=== PATIENT | female | born 1960 | race Caucasian/White ===

== ENCOUNTER 2016-08-18 19:51 | Emergency (ER) | payer BC ==
[~2016-08-18] VITALS: Ht 157.5 cm; Wt 84.0 kg
[~2016-08-18 19:51] MED LIST: ASPI-664 PO; CARV3.12 PO; LOSA25TA2 PO
[2016-08-18 19:55] VITALS: Ht 157.5 cm; Wt 84.0 kg
[2016-08-18] MEDS ORDERED: KETOROLAC 30 MG INJ IM STA (20:15)
--- NOTE | 2016-08-18 21:29 | RADRPT ---
PROCEDURE: XR Lumbar Spine. CLINICAL INDICATION: Pain. TECHNIQUE: AP, lateral and cone-down lateral view of the lumbar spine were obtained. COMPARISON: No prior studies are available for comparison. FINDINGS: Para 5 lumbar vertebra. There is moderate disk space narrowing at L4-5 and moderately severe disk s pace narrowing at L5-S1. There is no evidence of spondylolysis or spondylolisthesis. There is a mi ld 212 wedge compression fracture which appears chronic with ventral osteophytes off of 04/04. Ther e is disk space narrowing at T11-12. There is endplate softening at T12-L1, L1-2 and L2-3. There a re vascular calcifications in the abdominal aorta. There are ventral osteophytes at L3-4, L4-5 and L5-S1. IMPRESSION: 1. 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 2. Osteoarthritis of the lumbar spine with vacuum disk phenomenon and disk space narrowing at L4-5 and L5-S1. 3. Atherosclerotic vascular disease. RPTAT:AAJJ Physician Bhupinder Date Time Electronically viewed and signed by Physician Bhupinder on 08/18/2016 21:29 /
[2016-08-18] MEDS ORDERED: TRAM50TA2 PO (21:44)
--- NOTE | 2016-08-18 22:00 | ERD ---
ER Documentation Chief Complaint Date/Time DATE: 08/18/16 TIME: 21:56 Chief Complaint low back pain HPI 56-year-old female complains of left-sided lower back pain that radiates down her left knee for the past 3 months and has an exacerbation since this morning. She states that it was after she got out of the shower, she denies any fall. Please disregard the triage nurses note, she did not have any fall. She reports that she has had achy pain on and off for 3 months and has not received a prescription for Naprosyn by her primary care doctor. She takes it when she has pain, she took one this morning that seemed to help. Pain radiates down her left lower back down to her left knee, worse with any movement describes as achy and diffuse. She has not had any saddle anesthesia loss of bowel bladder function. Denies trauma. ROS All systems reviewed and are negative except as per history of present illness. Medications Home Meds Active Scripts Tramadol HCl (Tramadol HCl) 50 Mg Tablet, 50 MG PO Q4 Y for PAIN, #20 TAB Prov:NAVID PEGUERO PA-C 08/18/16 Losartan Potassium* (Cozaar*) 25 Mg Tab, 25 MG PO DAILY for 30 Days Prov:JORGE LOPEZ 10/27/14 Carvedilol* (Coreg*) 3.125 Mg Tab, 3.125 MG PO BID for 30 Days Prov:JORGE LOPEZ 10/27/14 Aspirin* (Aspirin* EC) 81 Mg Tabec, 81 MG PO DAILY for 30 Days Prov:JORGE LOPEZ 10/27/14 Allergies Allergies: Coded Allergies: No Known Drug Allergies (Verified Allergy, Unknown, 10/25/14) PMhx/Soc History of Surgery: Yes (OVARY CYST SURGERY) Anesthesia Reaction: No Hx Neurological Disorder: No Hx Respiratory Disorders: No Hx Cardiac Disorders: Yes (HYPERTENSION) Hx Psychiatric Problems: No Hx Miscellaneous Medical Probl: No Hx Alcohol Use: No Hx Substance Use: No Hx Tobacco Use: No Smoking Status: Never smoker Physical Exam Vitals Vital Signs Date Time Temp Pulse Resp B/P Pulse Ox O2 Delivery O2 Flow Rate FiO2 08/18/16 19:55 98.2 65 18 189/89 96 Physical Exam General: Well-developed, well-nourished. The patient appears in no acute distress. HEENT: Head is normocephalic, atraumatic. No scleral icterus. Neck: Supple. Nontender. Lungs: Clear to auscultation. Normal air movement. Heart: Regular rate and rhythm. S1 and S2 are normal. No murmurs, gallops, or rubs. Abdomen: Soft, nontender, nondistended. Bowel sounds are normoactive. Back sacroiliac pain upon palpation left side, paraspinous tenderness left lateral, strength lower extremities 5 out of 5 bilaterally. Extremities: No clubbing or cyanosis. Normal pulses. Moving extremities x 4. No weakness. Neurologic: Alert and oriented 3. No focal deficits. Skin: Normal turgor. No rash or lesions. Results 24 hrs Current Medications Medications (Trade) Dose Ordered Sig/Lauren Route PRN Reason Start Time Stop Time Status Last Admin Dose Admin Ketorolac Tromethamine (Toradol) 30 mg ONCE STAT IM 08/18/16 20:15 08/18/16 20:40 DC 08/18/16 20:55 DIAGNOSTIC IMAGING REPORT Patient: SURESH HANSEN : 1960 Age: 56 Sex: F MR #: [id number] DOS: 08/18/162014 Ordering MD: NAVID PEGUERO PA-C Location: [facility] Room/Bed: PROCEDURE: XR Lumbar Spine. CLINICAL INDICATION: Pain. TECHNIQUE: AP, lateral and cone-down lateral view of the lumbar spine were obtained. COMPARISON: No prior studies are available for comparison. FINDINGS: Para 5 lumbar vertebra. There is moderate disk space narrowing at L4-5 and moderately severe disk space narrowing at L5-S1. There is no evidence of spondylolysis or spondylolisthesis. There is a mild 212 wedge compression fracture which appears chronic with ventral osteophytes off of 04/04. There is disk space narrowing at T11-12. There is endplate softening at T12-L1, L1-2 and L2-3. There are vascular calcifications in the abdominal aorta. There are ventral osteophytes at L3-4, L4-5 and L5-S1. IMPRESSION: 1. 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 2. Osteoarthritis of the lumbar spine with vacuum disk phenomenon and disk space narrowing at L4-5 and L5-S1. 3. Atherosclerotic vascular disease. RPTAT:AAJJ Mark Arguello Physician Date Time Electronically viewed and signed by Mark Arguello Physician on 08/18/2016 21:29 JM/ CC: NAVID PEGUERO PA-C Procedures/MDM 56-year-old female complains of low back pain, intermittent for 3 months, she has had acute chronic back pain, and has been on and off. She her examination is benign, no signs of cauda equina compression. X-rays show old compression fracture at T12, this is not where her pain is, she denies any trauma. She does have multiple areas of arthritis and degenerative disc disease at it is a chronic process. She was given copies of her x-ray and cannot follow-up with her primary care doctor for further management pain control. Departure Diagnosis: Primary Impression: Arthritis Condition: Good Patient Instructions: What Is Arthritis?, Causes of Lumbar (Low Back) Pain Additional Instructions: Llame al doctor MAANA y eky ángela BING PARA DENTRO DE 1-2 [place].Dgale a la secretaria que nosotros le instruimos hacer esta bing.Avise o llame si berrios condicin se empeora antes de la bing. Regresa aqui si peor o no mejor. NAVID PEGUERO PA-C Aug 18, 2016 22:00
== END 2016-08-18 22:52 | disposition home or self-care (01) ==
LOC: FTE 19:51
DX: M19.90 Unspecified osteoarthritis, unspecified site (principal); I10 Essential (primary) hypertension; Z79.82 Long term (current) use of aspirin
CPT/HCPCS: 72100; 96372; J1885; Z7502

== ENCOUNTER 2017-01-07 14:51 | Emergency (ER) | payer BC ==
[~2017-01-07] VITALS: Ht 165.1 cm; Wt 81.6 kg
[~2017-01-07 14:51] MED LIST changes: +TRAM50TA2 PO
[2017-01-07 15:07] VITALS: Ht 165.1 cm; Wt 81.6 kg
--- NOTE | 2017-01-07 15:55 | ERD ---
ER Documentation Chief Complaint Chief Complaint Complains of right breast pain since last night HPI 57-year-old female history of ovarian cysts, presents emergency department with 1 day history of right-sided breast pain. The patient describes sharp achy pain that is around the area left, radiates to her shoulder. Her primary care doctor has done a mammogram that was routine on December 13 last month and she was told that because her breasts were too dense that she needs a breast ultrasound. She has not had any fevers or chills, drainage, swelling, warmth, erythema to the area. She denies any constitutional symptoms. ROS All systems reviewed and are negative except as per history of present illness. Medications Home Meds Active Scripts Tramadol HCl (Tramadol HCl) 50 Mg Tablet, 50 MG PO Q4 Y for PAIN, #15 TAB Prov:NAVID PEGUERO PA-C 01/07/17 Tramadol HCl (Tramadol HCl) 50 Mg Tablet, 50 MG PO Q4 Y for PAIN, #20 TAB Prov:NAVID PEGUERO PA-C 08/18/16 Losartan Potassium* (Cozaar*) 25 Mg Tab, 25 MG PO DAILY for 30 Days Prov:JORGE LOPEZ 10/27/14 Carvedilol* (Coreg*) 3.125 Mg Tab, 3.125 MG PO BID for 30 Days Prov:JORGE LOPEZ 10/27/14 Aspirin* (Aspirin* EC) 81 Mg Tabec, 81 MG PO DAILY for 30 Days Prov:JORGE LOPEZ 10/27/14 Allergies Allergies: Coded Allergies: No Known Drug Allergies (Verified Allergy, Unknown, 10/25/14) PMhx/Soc History of Surgery: Yes (OVARY CYST SURGERY) Anesthesia Reaction: No Hx Neurological Disorder: No Hx Respiratory Disorders: No Hx Cardiac Disorders: Yes (HYPERTENSION) Hx Psychiatric Problems: No Hx Miscellaneous Medical Probl: No Hx Alcohol Use: No Hx Substance Use: No Hx Tobacco Use: No Physical Exam Vitals Vital Signs Date Time Temp Pulse Resp B/P Pulse Ox O2 Delivery O2 Flow Rate FiO2 01/07/17 15:07 99.7 63 20 179/99 97 Physical Exam General: Well-developed, well-nourished. The patient appears in no acute distress. HEENT: Head is normocephalic, atraumatic. No scleral icterus. Neck: Supple. Nontender. Lungs: Clear to auscultation. Normal air movement. Breasts: Right breast is tender around the areola, there is no inversion, no skin changes, no warmth, no erythema, no masses, no axillary changes, left breast is unremarkable. Heart: Regular rate and rhythm. S1 and S2 are normal. No murmurs, gallops, or rubs. Abdomen: Soft, nontender, nondistended. Bowel sounds are normoactive. Extremities: No clubbing or cyanosis. Normal pulses. Moving extremities x 4. No weakness. Neurologic: Alert and oriented 3. No focal deficits. Skin: Normal turgor. No rash or lesions. Results 24 hrs Current Medications Medications (Trade) Dose Ordered Sig/Lauren Route PRN Reason Start Time Stop Time Status Last Admin Dose Admin Tramadol HCl (Ultram) 50 mg ONCE ONCE PO 01/07/17 16:00 01/07/17 16:01 DC 01/07/17 15:43 DIAGNOSTIC IMAGING REPORT Patient: SURESH HANESN : 1960 Age: 57 Sex: F MR #: [id number] DOS: 01/07/17 1535 Ordering MD: NAVID PEGUERO PA-C Location: [facility] Room/Bed: PROCEDURE: Bilateral breast ultrasound, complete. CLINICAL INDICATION: 57 year-old female with right breast pain.. Rule out abscess. TECHNIQUE: Whole breast and axillary ultrasound is performed. COMPARISON: None FINDINGS: Ultrasound of the breast shows no evidence of mass, cyst or fluid collections. IMPRESSION: No sonographic evidence of breast malignancy or abscess. Diagnostic mammography at a dedicated breast imaging Center is advised to further evaluate. BIRADS 0. (Incomplete). Further evaluation with mammography is advised. RPTAT: CC .Javy Landin MD, Date Time Electronically viewed and signed by .Javy Landin MD, on 01/07/2017 16:30 .L/ CC: NAVID PEGUERO PA-C Procedures/MDM 57-year-old female presents with right-sided breast pain that started yesterday , the patient's breast ultrasound shows no evidence of an acute mass, free fluid collection, cyst. It is unclear what the cause of the patient's breast pain. I discussed that this may be that started early infection, and she has any fevers, worsening pain, redness or swelling that she may return for reevaluation. Otherwise she was given a copy of her ultrasound today and she is to take it to her primary care doctor, for further imaging if necessary. It looks like she had a mammogram done last month that showed that her tissue was to dense for proper evaluation, she will be advised to follow-up with her PCP if she requires any further imaging. Departure Diagnosis: Primary Impression: Breast pain Condition: NAVID Carvajal PA-C Jan 07, 2017 15:55
[2017-01-07] MEDS ORDERED: traMADol 50 MG TAB PO ONE (16:00)
--- NOTE | 2017-01-07 16:30 | RADRPT ---
PROCEDURE: Bilateral breast ultrasound, complete. CLINICAL INDICATION: 57 year-old female with right breast pain.. Rule out abscess. TECHNIQUE: Whole breast and axillary ultrasound is performed. COMPARISON: None FINDINGS: Ultrasound of the breast shows no evidence of mass, cyst or fluid collections. IMPRESSION: No sonographic evidence of breast malignancy or abscess. Diagnostic mammography at a dedicated [facility] imaging Center is advised to further evaluate. BIRADS 0. (Incomplete). Further evaluation with mammography is advised. RPTAT: CC .Javy Landin MD, MD Date Time Electronically viewed and signed by .Javy Landin MD, on 01/07/2017 16:30 .L/
[2017-01-07] MEDS ORDERED: TRAM50TA2 PO (16:36)
== END 2017-01-07 17:00 | disposition home or self-care (01) ==
LOC: FTE 14:51
DX: N64.4 Mastodynia (principal); I10 Essential (primary) hypertension; Z79.82 Long term (current) use of aspirin
CPT/HCPCS: 76641; Z7502; Z7610